=== PATIENT | female | born 1950 | race Caucasian/White ===

== ENCOUNTER 2017-01-03 20:12 | Emergency (ER) | payer MEDICARE ==
[2017-01-03 20:27] VITALS: BP 117/81
--- NOTE | 2017-01-03 21:22 | ED ---
Fabio Almanza Erika, scribed for Giovanny Cardoso MD on 01/03/17 at 2053 . Throat Pain/Nasal Congestion - HPI Summary HPI Summary: Patient is a 66-year-old female presenting to the ED with a CC of constant floater in the right eye. Patient reports that this morning, she suddenly developed a large floater which moves around the visual field. As the day progressed, she also developed intermittent white flashes in the lateral field of vision, worse when in a dark room. She also complains of a paresthesia in the right eye. Pt denies any floater or similar symptoms in the left eye. Hx myopia - followed by Dr. Yepez. Pt denies Hx HTN. - History of Current Complaint Chief Complaint: EDEyeProblem Time Seen by Provider: 01/03/17 20:30 Hx Obtained From: Patient Onset/Duration: Sudden Onset, Lasting Hours, Still Present Severity: Moderate Associated Signs And Symptoms: Positive: Negative Cough: None - Allergies/Home Medications Allergies/Adverse Reactions: Allergies Allergy/AdvReac Type Severity Reaction Status Date / Time No Known Allergies Allergy Verified 01/03/17 20:50 PMH/Surg Hx/FS Hx/Imm Hx Endocrine/Hematology History: Denies: Hx Diabetes Cardiovascular History: Denies: Hx Angina, Hx Coronary Artery Disease, Hx Hypercholesterolemia, Hx Hypertension, Hx Myocardial Infarction, Hx Pacemaker/ICD, Hx Valvular Heart Disease Respiratory History: Denies: Hx Asthma, Hx Chronic Obstructive Pulmonary Disease (COPD) History: Denies: Hx Dialysis, Hx Renal Disease Sensory History: Denies: Hx Hearing Aid Psychiatric History: Denies: Hx Panic Disorder - Cancer History Cancer Type, Location and Year: RT BREAST CA, 2002 Hx Chemotherapy: Yes Hx Radiation Therapy: Yes - Surgical History Surgery Procedure, Year, and Place: OVARIAN CYST REMOVED , SECTIONAL MASTECTOMY RT BREAST AND LYMPH NODE RESECTION 2002 Infectious Disease History: Denies: Traveled Outside the [place] in Last 30 Days - Family History Known Family History: Positive: Cardiac Disease - Social History Occupation: Employed Full-time Lives: With Family Alcohol Use: None Hx Substance Use: No Substance Use Type: Reports: None Hx Tobacco Use: No Smoking Status (MU): Never Smoked Tobacco Review of Systems Negative: Fever Eyes: Other - R eye floater, paresthesia, and flashes All Other Systems Reviewed And Are Negative: Yes Physical Exam Triage Information Reviewed: Yes Vital Signs On Initial Exam: Initial Vitals Temp Pulse Resp BP Pulse Ox 97.2 F 89 18 117/81 100 01/03/17 20:24 01/03/17 20:24 01/03/17 20:24 01/03/17 20:24 01/03/17 20:24 Vital Signs Reviewed: Yes Appearance: Positive: Well-Appearing, No Pain Distress Skin: Positive: Warm, Skin Color Reflects Adequate Perfusion, Dry Head/Face: Positive: Normal Head/Face Inspection Eyes: Positive: Other: - Fundus visualized, no notable retinal detachment or bleeding. There is AV nicking ENT: Positive: Normal ENT inspection Neck: Positive: Supple, Nontender Respiratory/Lung Sounds: Positive: Clear to Auscultation, Breath Sounds Present Cardiovascular: Positive: RRR Abdomen Description: Positive: Nontender, Soft Bowel Sounds: Positive: Present Musculoskeletal: Positive: Normal Neurological: Positive: Normal Psychiatric: Positive: Affect/Mood Appropriate Diagnostics - Vital Signs Vital Signs Temp Pulse Resp BP Pulse Ox 01/03/17 20:24 97.2 F 89 18 117/81 100 - Laboratory Lab Statement: Any lab studies that have been ordered have been reviewed, and results considered in the medical decision making process. Re-Evaluation - Re-Evaluation First Eval Re-Evaluation Time: 20:53 Comment: Discussed Dr. Orellana's recommendation for follow up EENT Course/Dx - Course Course Of Treatment: I got a pretty good look at her fundus and was unable to see any detachment or tear. I spoke with Dr. Orellana who will follow her up first thing Thursday. - Diagnoses Provider Diagnoses: Floaters in visual field - Provider Notifications Discussed Care of Patient with: Dr. Orellana (ophthalmology) at 20:50 - recommends follow up Thursday Discharge - Discharge Plan Condition: Stable Disposition: HOME Patient Education Materials: Blurred Vision (ED) Referrals: Gala Wolff MD [Primary Care Provider] - Dariusz Orellana MD [Medical Doctor] - Additional Instructions: Please follow up with Dr. Orellana first thing Thursday. The documentation as recorded by the Fabio lima Erika accurately reflects the service I personally performed and the decisions made by me, Giovanny Cardoso MD.
== END 2017-01-03 21:04 | disposition home or self-care (01) ==
LOC: ED 20:12
DX: H43.399 Other vitreous opacities, unspecified eye (principal)
CPT/HCPCS: 99281

== ENCOUNTER 2019-09-19 15:07 | Emergency (ER) | payer MEDICARE ==
--- OUTSIDE RECORDS SUMMARY | 2019-09-19 15:14 | XMS REPORT | Continuity of Care Document ---
:1950 External Reference #:[id number] Author Name Dariusz Orellana M.D. Address [address] [place] [address] Care Team Providers Name Role Phone Gala oWlff M.D. - Internal Medicine Care Team Information Water Pollution Scientist Jesus Ventura MD - Cardiovascular Care Team Information Water Pollution Scientist Disease Michele Yepez O.D. - Thermal Cutter Hand Care Team Information Water Pollution Scientist Arden Strickland M.D. - Oncology Care Team Information Water Pollution Scientist Problems Active Problems Provider Date Fibromyalgia Onset: Malignant neoplasm of female breast Onset: Note: 2002 Gilbert's syndrome Onset: Vitreous degeneration Dariusz Orellana M.D. Onset: 01/05/2017 Combined form of senile cataract Dariusz Orellana M.D. Onset: 01/05/2017 Tear film insufficiency Dariusz Orellana M.D. Onset: 01/05/2017 Palpitations Onset: Meesman's corneal dystrophy Dariusz Orellana M.D. Onset: 07/30/2017 Injury of conjunctiva and corneal abrasion Delmis Grady O.D. Onset: 2017 without foreign body, right eye, initial encounter Social History Type Date Description Comments Sex Unknown ETOH Use Denies alcohol use Tobacco Use Start: Unknown Patient has never smoked Recreational Drug Use Denies Drug Use Smoking Status Reviewed: 08/04/19 Patient has never smoked Allergies, Adverse Reactions, Alerts Active Allergies Reaction Severity Comments Date Medication Sensitivity 01/05/2017 Medications Active Medications SIG Qnty Indications Ordering Provider Date Calcium 600 Unknown 600mg Tablets Magnesium Unknown 300mg Capsules Vitamin D every day Unknown 1000Unit Tablets Potassimin Unknown 75mg Tablets Vitamin C ER Unknown 500mg Capsules ER Quersetin W/ Bromalin Unknown Genteal Tears 1 drop both eyes Unknown 0.1-0.3% daily Solution Vitamin B-12 Unknown 500mcg Tablets Sub Immunizations Description No Information Available Vital Signs Description No Information Available Results Description No Information Available Procedures Description No Information Available Medical Devices Description No Information Available Encounters Description No Information Available Assessments Date Code Description Provider 08/04/2019 H25.813 Combined forms of age-related cataract, Dariusz Orellana M.D. bilateral 08/04/2019 H43.813 Vitreous degeneration, bilateral Dariusz Orellana M.D. Plan of Treatment 08/04/2019 - Dariusz Orellana M.D.H25.813 Combined forms of age-related cataract , bilateralComments:Smoking can increase the risk of developing or worsening any eye related disease, as well as affect your overall health. If you are a smoker, we strongly recommend that you quit.If you are not a smoker, we strongly recommend that you do not start. You have been diagnosed with cataracts. If you are happy with your vision as it is now, then we will see you at your next scheduled appointment. If you feel like your vision is getting worse before your scheduled appointment, please call Luzmaria or Sharon .Follow up:1 Year Follow Up Diagnostic Refraction You can expect to have your eyes dilated at your next visit.If Dr. Orellana orders any additional testing , it may require extra time. We recommend that you bring sunglasses, as dilation drops often make you light sensitive until they wear off. We always recommend you bring someone to drive you home if you are uncomfortable driving with your eyes dilated. If you have any questions before your next visit, feel free to call our office at .H43.813 Vitreous degeneration, bilateralComments:You have a Posterior Vitreous Detachment. If you have any changes in your floaters or flashing lights, please contact this office. Functional Status Description No Information Available Mental Status Description No Information Available Referrals Description No Information Available
--- OUTSIDE RECORDS SUMMARY | 2019-09-19 15:14 | XMS REPORT | Summary of Care ---
:1950 Author Organization [facility] Address [address] [address] Care Team Providers Name Role Phone NewGala Primary Care Provider Reason for Visit Reason Comments Shoulder Pain Encounter Details Date Type Department Care Team Description 08/16/2019 Office Visit [facility] - Nicci Holbrook, PT Pain of both shoulder [place] [facility] joints (Primary Dx) Therapy [place] [address] [phone] [place] [phone] Allergies No Known Allergiesdocumented as of this encounter (statuses as of 08/16/2019) Medications Medication Sig Dispensed Refills Start Date End Date Status Mirbgke-Vpsrbrcts-Twjvdn Take by mouth. 0 Active n D (CALCIUM MAGNESIUM PO) Potassium 99 MG Oral Tab Take 2 Tabs by 0 Active mouth DAILY. ascorbic acid 500 MG Take 500 mg by 0 Active Oral Tab mouth DAILY. QUERCETIN PO Take by mouth 0 Active DAILY. Flaxseed, Linseed, Take by mouth. 0 Active (FLAXSEED OIL) Oral Oil HYDROXYPROPYL Place to the 0 Active METHYLCELLULOSE (GENTEAL external eye. MILD) 0.2 % Ophthalmic Solution Cyanocobalamin (VITAMIN Take by mouth. 0 Active B 12 PO) Nutritional Supplements Take by mouth 0 Active (CALCIUM D-GLUCARATE PO) DAILY. Misc Natural Products Take by mouth 0 Active (DANDELION ROOT PO) DAILY. documented as of this encounter (statuses as of 08/16/2019) Active Problems Problem Noted Date Tarlov cysts 06/11/2018 Malignant neoplasm of female breast 04/12/2018 Lipid disorder 02/22/2018 Meibomitis, unspecified laterality 07/01/2017 Insufficiency of tear film of both eyes 06/10/2017 Nuclear senile cataract of both eyes 06/10/2017 Vestibular neuritis 11/09/2012 Vestibular neuronitis 07/21/2012 Osteoporosis 04/24/2008 Abdominal pain, right lower quadrant 11/25/2007 Personal history of malignant neoplasm of breast 11/25/2007 Overview: Documented Breast cancer that was lymph Node positive, estrogen receptor positive in the past.; [facility] recommends bilateral annual MRI - dense breasts Atypical chest pain 11/25/2007 Overview: Documented Negative Stress testing in 2002 Fibromyalgia 11/25/2007 Ovarian Cyst 11/25/2007 documented as of this encounter (statuses as of 08/16/2019) Immunizations Name Administration Dates Next Due DTAP Vaccine 02/13/2014 Hepatitis A Vaccine-Adult 08/28/2009, 08/29/2008 Phenergan (12.5 mg) 07/03/2012 documented as of this encounter Social History Tobacco Use Types Packs/Day Years Used Date Never Smoker Smokeless Tobacco: Never Used Alcohol Use Drinks/Week oz/Week Comments No 0 Standard drinks or equivalent 0.0 Social Isolation Answer Date Recorded In a typical week, how many times do you More than three times a week 2018 talk on the phone with family, friends, or neighbors? How often do you get together with friends More than three times a week 05/30 or relatives? How often do you attend adventist or Not asked caodaism services? Do you belong to any clubs or Not asked organizations such as adventist groups, unions, fraternal or athletic groups, or school groups? How often do you attend meetings of the Not asked clubs or organizations you belong to? Are you now , , , 05/30/2019 , never or living with a partner? Stress Answer Date Recorded Do you feel stress - tense, restless, nervous, or anxious, Not at all 2018 or unable to sleep at night because your mind is troubled all the time - these days? Financial Resource Strain Answer Date Recorded How hard is it for you to pay for the very basics like Not hard at all 2018 food, housing, medical care, and heating? Intimate Partner Violence Answer Date Recorded Within the last year, have you been afraid of your partner or No 05/30/2019 ex-partner? Within the last year, have you been humiliated or emotionally No 05/30/2019 abused in other ways by your partner or ex-partner? Within the last year, have you been kicked, hit, slapped, or No 05/30/2019 otherwise physically hurt by your partner or ex-partner? Within the last year, have you been raped or forced to have any No 05/30/2019 kind of sexual activity by your partner or ex-partner? Food Insecurity Answer Date Recorded Within the past 12 months, you worried that your food would Never true 2018 run out before you got money to buy more. Within the past 12 months, the food you bought just didn't Never true 2018 last and you didn't have money to get more. Transportation Needs Answer Date Recorded In the past 12 months, has lack of transportation kept you from No 05/30/2019 medical appointments or from getting medications? In the past 12 months, has lack of transportation kept you from No 05/30/2019 meetings, work, or getting things needed for daily living? Sex Assigned at Date Recorded Not on file Job Start Date Occupation Industry Not on file Not on file Not on file Travel History Travel Start Travel End No recent travel history available. documented as of this encounter Last Filed Vital Signs Not on filedocumented in this encounter Progress Notes Nicci Holbrook, PT - 08/16/2019 10:00 AM EST [facility] Treatment Note Outpatient Physical Therapy [facility] [address] [place] [phone] Treatment Number: [id number] Referring Physician: Gala Wolff Primary Diagnosis: ICD-9-CM ICD-10-CM 1. Pain of both shoulder joints 719.41 M25.511 M25.512 Time In: 1000 Time Out: 1045 Pain at Start of Care: 5/10 Pain at End of Care: 10 Subjective Comments: Her hurt his back and she has been doing all the chores around the house. She is quite a bit more sore especially in the low back area. Interventions: Manual Therapy (60266) Soft Tissue Mobilization: Manual Tissue Mobilization Soft Tissue Mobilization Details: shoulders/back and hips (left leg nerve glides) Other Manual Therapy Treatment Performed: left shoulder GH mobilization Total Minutes (All Manual Therapy): 45 Assessment: She was very tight in the quadratus lumborum right > left and the paraspinals. She tolerated DTM to the area well and thoracic mobilization Plan for Next Visit: Assess and treat Total UNTIMED Code Treatment Minutes: Total TIMED Code Treatment Minutes: 45 Total Treatment Minutes: 45 Author: Nicci Holbrook, PT 08/16/2019 10:48 documented in this encounter Plan of Treatment Date Type Specialty Care Team Description 09/05/2019 Office Visit Physical Therapy Nicci Holbrook, PT [address] [place] [address] [phone] Health Maintenance Due Date Last Done Comments MAMMOGRAM (SCREENING) 02/05/2020 02/04/2019, 02/03/2018, 01/29/2017, Additional history exists DEPRESSION SCREENING 05/30/2020 05/30/2019 FALL RISK ASSESSMENT 05/30/2020 05/30/2019, 05/30/2019 MEDICARE ANNUAL WELLNESS 05/30/2020 05/30/2019, 03/11/2018, VISIT 03/12/2017, Additional history exists PNEUMOCOCCAL 65+YRS (1 of 2 05/30/2020 Postponed from - PCV13) 2015 (Other) OSTEOPOROSIS SCREENING 06/07/2020 06/07/2015, 07/16/2010 ZOSTER IMMUNIZATION SERIES 09/21/2020 Postponed from (1 of 2) 2000 (Other) LIPID DISORDER SCREENING 01/21/2023 01/21/2018, 07/25/2014, 03/07/2014, Additional history exists Colonoscopy 08/31/2028 08/31/2018, 06/08/2007 HPV IMMUNIZATION SERIES Aged Out No longer eligible based on patient's age to complete this topic MENINGOCOCCAL VACCINE IMM Aged Out No longer eligible based on patient's age to complete this topic documented as of this encounter Results Not on filedocumented in this encounter Visit Diagnoses Diagnosis Pain of both shoulder joints - Primary documented in this encounter Insurance Payer Benefit Plan / Subscriber ID Effective Dates Phone Address Type Group MEDICARE MEDICARE PART A xxxxxxxxxxx 2015-Present Medicare & B [facility] xxxxxxxxxxx 2015-Present [facility] [employer] (Home) [place] [phone] [place], [place] (Work) [id number] documented as of this encounter
--- OUTSIDE RECORDS SUMMARY | 2019-09-19 15:14 | XMS REPORT | Summary of Care ---
:1950 Author Organization [facility] Address [address] [address] Care Team Providers Name Role Phone NewGala Primary Care Provider Reason for Visit Reason Comments Shoulder Pain Encounter Details Date Type Department Care Team Description 09/05/2019 Office Visit [facility] - Nicci Holbrook, PT Pain of both shoulder [place] [facility] joints (Primary Dx) [place] [address] [address] [phone] [address] [place] [phone] Allergies No Known Allergiesdocumented as of this encounter (statuses as of 09/05/2019) Medications Medication Sig Dispensed Refills Start Date End Date Status Mbnratg-Yuujbpekl-Nnusvl Take by mouth. 0 Active n D [...] as of this encounter (statuses as of 09/05/2019) Active Problems Problem Noted Date Tarlov cysts [...] positive, estrogen receptor positive in the past.; [facility] recommends bilateral annual MRI - dense breasts Atypical chest pain 11/25/2007 Overview: Documented Negative Stress testing in 2001 Fibromyalgia 11/25/2007 Ovarian Cyst 11/25/2007 documented as of this encounter (statuses as of 09/05/2019) Immunizations Name Administration Dates Next Due DTAP Vaccine 02/13/2014 Hepatitis A Vaccine-Adult 08/28/2009, 08/29/2008 documented as of this encounter Social History [...] or relatives? How often do you attend anglican or Not asked orthodoxy services? Do you belong to any clubs or Not asked organizations such as anglican groups, unions, fraternal or athletic groups, or [...] encounter Progress Notes Nicci Holbrook, PT - 09/05/2019 11:00 AM EST [facility] Treatment Note Outpatient Physical Therapy Services [facility] [address] [place] [phone] Treatment Number: [id number] Referring Physician: Gala Wolff Primary Diagnosis: ICD-9-CM ICD-10-CM 1. Pain of both shoulder joints 719.41 M25.511 M25.512 Time In: 1100 Time Out: 1145 Pain at Start of Care: 410 Pain at End of Care: 2 Subjective Comments: She is feeling better than last time. She has realized that since her husbandis unable to drive she is irritating the IT band with all the driving she is doing. Interventions: Manual Therapy (51315) Soft Tissue Mobilization: Manual Tissue Mobilization Soft Tissue Mobilization Details: shoulders/back and hips (left leg nerve glides) Joint Mobilization: thoracic mobilization Joint Mobilization Details: grade III Other Manual Therapy Treatment Performed: left shoulder GH mobilization Total Minutes (All Manual Therapy): 45 Assessment: Right QL was very tight and loosening this reduced the right IT band soreness. She is stiff in the thoracic area and responded well to mobilization. The shoulder is tight but much less pain today. Plan for Next Visit: Going out 3-4 weeks to see how she does. Total UNTIMED Code Treatment Minutes: Total TIMED Code Treatment Minutes: 45 Total Treatment Minutes: 45 Author: Nicci Holbrook, PT 09/05/2019 11:45 documented in this encounter Plan of Treatment Date Type Specialty Care Team Description 10/04/2019 Office Visit Physical Therapy Nicci Holbrook, PT [address] [place] [address] [phone] Health Maintenance Due Date Last Done Comments [...] 01/21/2023 01/21/2018, 07/25/2014, 03/07/2014, Additional history exists DTaP/Tdap/Td Vaccines (2 - 02/14/2024 02/13/2014 Tdap) Colonoscopy 08/31/2028 08/31/2018, 06/08/2007 HEPATITIS A IMMUNIZATION Aged Out 08/28/2009, 08/29/2008 No longer eligible SERIES based on patient's age to complete this topic HPV IMMUNIZATION SERIES Aged Out No longer eligible based on patient's age to complete this topic MENINGOCOCCAL VACCINE IMM Aged Out No longer eligible based on patient's age to complete this topic documented as of this encounter Results Not on filedocumented in this encounter Visit Diagnoses Diagnosis Pain of both shoulder joints documented in this encounter Insurance Payer Benefit Plan / Subscriber ID Effective Dates Phone Address Type Group MEDICARE MEDICARE PART A xxxxxxxxxxx 2015-Present Medicare & B [facility] xxxxxxxxxxx 2015-Present [facility] [employer] (Home) [place] [phone] [place], [place] (Work) [id number] documented as of this encounter
[2019-09-19 15:50] VITALS: BP 130/88
--- NOTE | 2019-09-19 15:55 | UC ---
UC General HPI - HPI Summary HPI Summary: 69-year-old woman comes in with a chief complaint of fatigue and generalized weakness. 5 days ago patient went out for a walk and she said she walks faster than she ever has before. Immediately after that episode patient felt very fatigued. She's felt fatigued and weak ever since that time. No complaint of chest pain. Does report she feels like she is breathing very slowly. No upper respiratory tract infection symptoms no fevers measured. - History of Current Complaint Chief Complaint: UCGeneralIllness Stated Complaint: DIZZY, LIGHT HEADED Time Seen by Provider: 09/19/19 15:11 Hx Last Menstrual Period: post Pain Intensity: 0 - Allergy/Home Medications Allergies/Adverse Reactions: Allergies Allergy/AdvReac Type Severity Reaction Status Date / Time No Known Allergies Allergy Verified 09/19/19 15:24 PMH/Surg Hx/FS Hx/Imm Hx Previously Healthy: Yes - FIBROMYALGIA - Surgical History Surgical History: Yes Surgery Procedure, Year, and Place: OVARIAN CYST REMOVED , SECTIONAL MASTECTOMY RT BREAST AND LYMPH NODE RESECTION 2002 - Family History Known Family History: Positive: Cardiac Disease - Social History Alcohol Use: None Substance Use Type: None Smoking Status (MU): Never Smoked Tobacco Review of Systems All Other Systems Reviewed And Are Negative: Yes Constitutional: Positive: Fatigue, Other - SEE HPI Skin: Positive: Negative Eyes: Positive: Negative ENT: Positive: Negative Respiratory: Positive: Negative Cardiovascular: Positive: Negative Gastrointestinal: Positive: Negative Motor: Positive: Weakness - GENERALIZED Neurovascular: Positive: Negative Musculoskeletal: Positive: Negative Neurological: Positive: Weakness - GENERALIZED Psychological: Positive: Negative Is Patient Immunocompromised?: No Physical Exam Triage Information Reviewed: Yes Appearance: Well-Appearing, No Pain Distress, Well-Nourished Vital Signs: Initial Vital Signs Temp 99.6 F 09/19/19 15:18 Pulse 92 09/19/19 15:18 Resp 14 09/19/19 15:18 BP 125/68 09/19/19 15:18 Pulse Ox 99 09/19/19 15:18 Vital Signs Reviewed: Yes Eye Exam: Normal Eyes: Positive: Conjunctiva Clear Neck: Positive: Supple Respiratory: Positive: Lungs clear, Normal breath sounds, No respiratory distress Cardiovascular: Positive: RRR Musculoskeletal: Positive: Strength Intact, ROM Intact Neurological: Positive: Alert Psychological: Positive: Age Appropriate Behavior Skin Exam: Normal Diagnostics - EKG Cardiac Rate: NL - at 1508 Cardiac Rhythm: Sinus: Normal - 94bpm Ectopy: None ST Segment: Normal Summary of EKG Findings: When comparing to July 2018 EKG there is a change in voltage and direction of the QRS in leads III and aVF Course/Dx - Course Course Of Treatment: When comparing the EKG from today versus July 2018 there is a change in the direction amplitude of the QRS and leads 3 and aVF. I do not see any acute ischemic changes. With the patient's symptoms starting immediately after brisk activity the possibility of cardiac cause for the fatigue and generalized weakness as a possibility and I recommended further evaluation emergency Department. Discussed going by ambulance patient prefers to go by POV. - Diagnoses Provider Diagnosis: Fatigue Discharge ED - Sign-Out/Discharge Documenting (check all that apply): Patient Departure All imaging exams completed and their final reports reviewed: No Studies - Discharge Plan Condition: Stable Disposition: HOME-RECOMMEND TO ED Patient Education Materials: Fatigue (ED) Referrals: Gala Wolff MD [Primary Care Provider] - Additional Instructions: GO DIRECTLY TO THE EMERGENCY DEPARTMENT FOR FURTHER EVALUATION OF YOUR FATIGUE AND CHANGE IN EKG. - Billing Disposition and Condition Condition: STABLE Disposition: Home-Recommend to ED
== END 2019-09-19 16:05 | disposition home health service (06) ==
LOC: UCEAST 15:07
DX: R53.83 Other fatigue (principal); M79.7 Fibromyalgia; R53.1 Weakness; Z85.3 Personal history of malignant neoplasm of breast; Z90.11 Acquired absence of right breast and nipple
CPT/HCPCS: 99212; G0463

== ENCOUNTER 2019-09-19 16:22 | Emergency (ER) | payer MEDICARE ==
[2019-09-19 17:06] LABS: ABS Eosinophils 0.1 10^3/ul (0-0.6); ABS Monocytes 0.6 10^3/ul (0-0.8); ABS Neutrophils 3.5 10^3/ul (1.5-7.7); Eosinophil % 1.5 %; Hematocrit 41 % (35-47); Hemoglobin 14.3 g/dL (12.0-16.0); Lymphocyte % 31.8 %; Mean Corpuscular HGB Conc 35 g/dL (31-36); Mean Corpuscular Hemoglobin 33 pg (27-31); Mean Corpuscular Volume 94 fL (80-97); Mean Platelet Volume 7.8 fL (7.4-10.4); Nucleated Red Blood Cells % 0.1; Platelet Count 280 10^3/uL (150-450); Red Blood Count 4.38 10^6 /uL (3.70-4.87); Red Cell Distribution Width 13 % (10-15); White Blood Count 6.2 10^3/uL (3.5-10.8)
[2019-09-19 17:17] LABS: INR 0.96 (0.82-1.09)
[2019-09-19 17:23] LABS: Albumin 4.5 g/dL (3.2-5.2); Albumin/Globulin Ratio 1.3 (1-3); BUN/Creatinine Ratio 28.1 (8-20); Calcium 9.4 mg/dL (8.6-10.3); EGFR African American 127.2 (>60); EGFR Non-African American 105.2 (>60); Globulin 3.5 g/dL (2-4); Potassium 3.7 mmol/L (3.5-5.0); Total Bilirubin 1.1 mg/dL (0.2-1.0)
--- NOTE | 2019-09-19 17:44 | ED ---
Complex/Multi-Sys Presentation - HPI Summary HPI Summary: 65-year-old male presents with weakness for the past 5 days. She started when she walked really fast 5 days ago. States she feels like she has recovered since. She denies any chest pressures or shortness of breath. She states that she feels that she has been breathing a lot less today. Denies abdominal pain. States feels Little bit queasy. States she feels worse when she stands up. She does have a history of orthostatic hypertension. Has history of myalgia. She states that she doesnt feel like she passed out. States that she is very fatigued and tired. - History Of Current Complaint Chief Complaint: EDWeakness Time Seen by Provider: 09/19/19 17:04 - Allergies/Home Medications Allergies/Adverse Reactions: Allergies Allergy/AdvReac Type Severity Reaction Status Date / Time No Known Allergies Allergy Verified 09/19/19 15:24 PMH/Surg Hx/FS Hx/Imm Hx Endocrine/Hematology History: Denies: Hx Diabetes Cardiovascular History: Denies: Hx Angina, Hx Coronary Artery Disease, Hx Hypercholesterolemia, Hx Hypertension, Hx Myocardial Infarction, Hx Pacemaker/ICD, Hx Valvular Heart Disease Respiratory History: Denies: Hx Asthma, Hx Chronic Obstructive Pulmonary Disease (COPD) History: Denies: Hx Dialysis, Hx Renal Disease Sensory History: Denies: Hx Contacts or Glasses, Hx Hearing Aid Opthamlomology History: Denies: Hx Contacts or Glasses Psychiatric History: Denies: Hx Panic Disorder - Cancer History Cancer Type, Location and Year: RT BREAST CA, 2002 Hx Chemotherapy: Yes Hx Radiation Therapy: Yes - Surgical History Surgery Procedure, Year, and Place: OVARIAN CYST REMOVED , SECTIONAL MASTECTOMY RT BREAST AND LYMPH NODE RESECTION 2002 - Immunization History Date of Tetanus Vaccine: utd Date of Influenza Vaccine: none Infectious Disease History: Yes Infectious Disease History: Denies: Traveled Outside the [place] in Last 30 Days - Family History Known Family History: Positive: Cardiac Disease - Social History Alcohol Use: None Hx Substance Use: No Substance Use Type: Reports: None Hx Tobacco Use: No Smoking Status (MU): Never Smoked Tobacco Review of Systems Negative: Fever Negative: Chest Pain Negative: Shortness Of Breath All Other Systems Reviewed And Are Negative: Yes Physical Exam Triage Information Reviewed: Yes Vital Signs On Initial Exam: Initial Vitals Temp Pulse Resp BP Pulse Ox 97.3 F 96 18 136/75 98 09/19/19 16:30 09/19/19 16:30 09/19/19 16:30 09/19/19 16:30 09/19/19 16:30 Vital Signs Reviewed: Yes Appearance: Positive: Well-Appearing Skin: Positive: Warm, Dry Head/Face: Positive: Normal Head/Face Inspection Eyes: Positive: Normal, Conjunctiva Clear ENT: Positive: Pharynx normal Respiratory/Lung Sounds: Positive: Clear to Auscultation, Breath Sounds Present Cardiovascular: Positive: Normal, RRR Abdomen Description: Positive: Nontender, Soft Bowel Sounds: Positive: Present Musculoskeletal: Positive: Normal Neurological: Positive: Normal Psychiatric: Positive: Normal Procedures - Sedation Patient Received Moderate/Deep Sedation with Procedure: No Diagnostics - Vital Signs Vital Signs Temp Pulse Resp BP Pulse Ox 09/19/19 17:28 81 18 125/77 98 09/19/19 17:00 90 100 09/19/19 16:59 92 99 09/19/19 16:58 86 137/76 99 09/19/19 16:30 97.3 F 96 18 136/75 98 - Laboratory Lab Results: Lab Results 09/19/19 09/19/19 09/19/19 Range/Units 16:56 16:56 16:56 WBC 6.2 (3.5-10.8) 10^3/uL RBC 4.38 (3.70-4.87) 10^6 /uL Hgb 14.3 (12.0-16.0) g/dL Hct 41 (35-47) % MCV 94 (80-97) fL MCH 33 H (27-31) pg MCHC 35 (31-36) g/dL RDW 13 (10-15) % Plt Count 280 (150-450) 10^3/uL MPV 7.8 (7.4-10.4) fL Neut % (Auto) 56.7 % Lymph % (Auto) 31.8 % Bay % (Auto) 9.4 % Eos % (Auto) 1.5 % Baso % (Auto) 0.6 % Absolute Neuts (auto) 3.5 (1.5-7.7) 10^3/ul Absolute Lymphs (auto) 2.0 (1.0-4.8) 10^3/ul Absolute Monos (auto) 0.6 (0-0.8) 10^3/ul Absolute Eos (auto) 0.1 (0-0.6) 10^3/ul Absolute Basos (auto) 0.0 (0-0.2) 10^3/ul Absolute Nucleated RBC 0.0 10^3/ul Nucleated RBC % 0.1 INR (Anticoag Therapy) 0.96 (0.82-1.09) Sodium 138 (135-145) mmol/L Potassium 3.7 (3.5-5.0) mmol/L Chloride 105 (101-111) mmol/L Carbon Dioxide 27 (22-32) mmol/L Anion Gap 6 (2-11) mmol/L BUN 16 (6-24) mg/dL Creatinine 0.57 (0.51-0.95) mg/dL Est GFR ( Amer) 127.2 (>60) Est GFR (Non-Af Amer) 105.2 (>60) BUN/Creatinine Ratio 28.1 H (8-20) Glucose 99 (70-100) mg/dL Calcium 9.4 (8.6-10.3) mg/dL Magnesium Pending Total Bilirubin 1.10 H (0.2-1.0) mg/dL AST 22 (13-39) U/L ALT 19 (7-52) U/L Alkaline Phosphatase 80 (34-104) U/L Troponin I 0.00 (<0.03) ng/mL Total Protein 8.0 (6.4-8.9) g/dL Albumin 4.5 (3.2-5.2) g/dL Globulin 3.5 (2-4) g/dL Albumin/Globulin Ratio 1.3 (1-3) TSH Pending Result Diagrams: 09/19/19 16:56 09/19/19 16:56 Lab Statement: Any lab studies that have been ordered have been reviewed, and results considered in the medical decision making process. Complex Multi-Symp Course/Dx Course Of Treatment: 65-year-old male presents with weakness for the past 5 days. She started when she walked really fast 5 days ago. States she feels like she has recovered since. She denies any chest pressures or shortness of breath. She states that she feels that she has been breathing a lot less today. Denies abdominal pain. States feels Little bit queasy. States she feels worse when she stands up. She does have a history of orthostatic hypertension. Has history of myalgia. She states that she doesnt feel like she passed out. States that she is very fatigued and tired. On exam has normal neuro exam. lungs clear to auscultation. Heart regular rate and rhythm. EKG shows sinus rhythm. No significant changes in the EKGs seen. lab work wnl. Discuss case with dr guerra and will discharged after one troponin. Told to follow cardiology. Patient understands and agrees plan. - Diagnoses Differential Diagnoses/HQI/PQRI: Cardiac Ischemia, Metabolic Abnormality, Urinary Tract Infection Provider Diagnoses: Fatigue Discharge ED - Sign-Out/Discharge Documenting (check all that apply): Patient Departure - Discharge Plan Condition: Good Disposition: HOME Patient Education Materials: Fatigue (ED) Referrals: Jesus Ventura MD [Medical Doctor] - Gala Wolff MD [Primary Care Provider] - Additional Instructions: follow up with primary within 5 days follow up with cardiology Return to ED if develop any new or worsening symptoms - Billing Disposition and Condition Condition: GOOD Disposition: Home
[2019-09-19 17:49] LABS: Magnesium 2.3 mg/dL (1.9-2.7)
[2019-09-19 18:01] LABS: TSH (Thyroid Stimulating Horm) 1.42 mcIU/mL (0.34-5.60)
[2019-09-19 18:35] VITALS: BP 113/71
== END 2019-09-19 18:34 | disposition home or self-care (01) ==
LOC: ED 16:22
DX: R53.83 Other fatigue (principal); Z85.3 Personal history of malignant neoplasm of breast; Z90.11 Acquired absence of right breast and nipple
CPT/HCPCS: 36415; 80053; 83735; 84443; 84484; 85025; 85610; 93005; 99283